=== PATIENT | male | born 1990 | race Caucasian/White ===

== ENCOUNTER 2020-04-23 11:44 | Emergency (ER) | payer BC, OTHER ==
[~2020-04-23] VITALS: Ht 185.4 cm; Wt 68.0 kg
[~2020-04-23 11:44] MED LIST: CYCL10TA50; OXYC-302
[2020-04-23 12:00] VITALS: BP 110/74
--- NOTE | 2020-04-23 12:40 | NUR ---
Assumed care of patient. NAD. No needs.
--- NOTE | 2020-04-23 13:56 | NUR ---
Patient/Caregiver given discharge instructions and they have confirmed that they understand the instructions. Patient ambulatory with steady gait.
== END 2020-04-23 13:58 ==
LOC: ED 13:41
DX: J02.9 Acute pharyngitis, unspecified (principal); Z20.828 Contact with and (suspected) exposure to other viral communicable diseases; R50.9 Fever, unspecified
CPT/HCPCS: 36415; 87635; 99283